=== PATIENT | male | born 1940 | race Caucasian/White ===

== ENCOUNTER 2021-11-28 13:33 | Outpatient (CLI) | payer MEDICARE ==
[2021-11-28 14:30] LABS: Hemoglobin 13.8 g/dL (13.5-17.5); Mean Corpuscular HGB CONC 31.8 g/dL (32.0-36.0); Mean Corpuscular Hemoglobin 30.9 pg (27.0-33.0); Mean Corpuscular Volume 97.1 fl (81.2-95.1); Mean Platelet Volume 10.1 fl (7.4-10.4); Platelet Count 195 10x3/uL (150-450); RBC Distribution Width 13.8 % (11.5-14.5); Red Blood Cell (RBC) Count 4.47 10x6/uL (4.32-5.72); White Blood Cell (WBC) Count 14.3 10x3/uL (3.5-10.5)
[2021-11-28 14:52] LABS: Anion Gap 15 mmol/L (10-20); BUN (Urea Nitrogen) 26 mg/dL (8.4-25.7); Calc. Creatinine Clearance 0 mL/min (70-130); Calcium 9.2 mg/dL (7.8-10.44); Carbon Dioxide 25 mmol/L (23-31); Chloride 105 mmol/L (98-107); Estimated GFR 52; Glucose 107 mg/dL (83-110); Potassium 4.6 mmol/L (3.5-5.1); Sodium 140 mmol/L (136-145)
== END 2021-11-28 13:34 | disposition home or self-care (01) ==
LOC: LABBT 13:33
PROVIDERS: ATTEND Internal Medicine Cardiovascular Disease
DX: Z01.812 Encounter for preprocedural laboratory examination (principal); I48.0 Paroxysmal atrial fibrillation; I48.4 Atypical atrial flutter; Z20.822 Contact with and (suspected) exposure to COVID-19
CPT/HCPCS: 80048; 85027; 87811

== ENCOUNTER 2021-12-03 07:31 | Observation (INO) | payer MEDICARE ==
[2021-11-28 11:04] VITALS: BMI 27.3
[2021-12-03] MEDS ORDERED: Heparin 10,000 UNITS/ 10 ML VIAL ONE (09:38)
[2021-12-03] MEDS ORDERED: Lidocaine 1% (PF) 30 ML VIAL ONE (09:38)
[2021-12-03] MEDS ORDERED: Protamine Sulfate 50 MG/5 ML VIAL ONE (09:38)
[2021-12-03] MEDS ORDERED: cloNIDine 0.1 MG TAB PO PRN (10:12)
[2021-12-03] MEDS ORDERED: HYDROcodone/Acetaminophen 5/325 mg Tablet PO PRN ×2 (10:15)
[2021-12-03] MEDS ORDERED: Fentanyl 100 MCG/2 ML VIAL ONE (10:15)
[2021-12-03] MEDS ORDERED: SUGAMMADEX SODIUM 200 MG/2 ML VIAL ONE (10:15)
[2021-12-03] MEDS ORDERED: Lorazepam 1 MG TAB PO PRN (10:16)
[2021-12-03] MEDS ORDERED: Ondansetron PF 4 MG/2 ML Vial ONE (10:27)
[2021-12-03] MEDS ORDERED: Lidocaine 1% PF 5 ML VIAL ONE (10:27)
[2021-12-03] MEDS ORDERED: PROPOFOL 200 MG/20 ML VIAL ONE (10:27)
[2021-12-03] MEDS ORDERED: Rocuronium Bromide 10 MG/ML (10ML VIAL) ONE (10:27)
[2021-12-03] MEDS ORDERED: ePHEDrine 50 MG/ML VIAL ONE (10:27)
[2021-12-03] MEDS ORDERED: Dexamethasone 20 MG/5 ML VIAL ONE (10:27)
[2021-12-03 10:35] LABS: INR-International Normal Ratio 1.1; Prothrombin Time 13.8 sec (12.0-14.7)
[2021-12-03] MEDS ORDERED: Phenylephrine 10 MG/ML VIAL ONE (11:15)
[2021-12-03] MEDS ORDERED: Heparin 25,000 units/D5W 500 ML ONE (11:40)
[2021-12-03] MEDS ORDERED: Ondansetron HCl/PF 4 MG/2 ML Vial IVP PRN (14:37)
[2021-12-03] MEDS ORDERED: Promethazine HCl 25 MG/ML VIAL IVPB PRN (14:37)
[2021-12-03] MEDS ORDERED: Atenolol 25 MG TAB PO SCH (21:00)
[2021-12-03] MEDS ORDERED: Atorvastatin Calcium 10 MG TAB PO SCH (21:00)
[2021-12-03] MEDS: Acetaminophen 325 MG TAB PO PRN (21:44)
[2021-12-03] MEDS: Vit A,C & E/Lutein/Minerals Tablet PO SCH (21:45)
[2021-12-03] MEDS: Apixaban 5 MG TAB PO SCH (21:46)
[2021-12-03] MEDS: cloNIDine 0.1 MG TAB PO SCH ×2 (21:46→21:51)
[2021-12-04 08:12] VITALS: BP 169/82; TEMP 98.1
[2021-12-04] MEDS ORDERED: Multivitamin W/ Minerals 1 TAB PO SCH (09:00)
[2021-12-04] MEDS ORDERED: Hydrochlorothiazide 25 MG TAB PO SCH (09:00)
[2021-12-04] MEDS ORDERED: Magnesium Oxide 400 MG TAB PO SCH (09:00)
[2021-12-04] MEDS ORDERED: Cholecalciferol (Vitamin D3) 400 UNITS TAB PO SCH (09:00)
[2021-12-04] MEDS ORDERED: Zinc Sulfate 220 MG CAP PO SCH (09:00)
[2021-12-04] MEDS ORDERED: TURMERIC 400 MG PO SCH (09:00)
[2021-12-04] MEDS ORDERED: Valsartan 80 MG TAB PO SCH (09:00)
[2021-12-04] MEDS ORDERED: Aspirin 81 mg Enteric Coated Tablet PO SCH (09:00)
[2021-12-04] MEDS ORDERED: Ascorbic Acid 500 mg Chewable Tablet PO SCH (09:00)
[2021-12-04] MEDS: Vit A,C & E/Lutein/Minerals Tablet PO SCH (09:21)
[2021-12-04] MEDS: Apixaban 5 MG TAB PO SCH (09:22)
[2021-12-04] MEDS: Acetaminophen 325 MG TAB PO PRN (09:22)
== END 2021-12-04 10:30 | disposition home or self-care (01) ==
LOC: CCL 07:31 → 2NO 09:55
PROVIDERS: ADMIT Internal Medicine Cardiovascular Disease; ATTEND Internal Medicine Cardiovascular Disease
PROC: B246ZZ4 Ultrasonography of Right and Left Heart, Transesophageal (ICD-10-PCS; principal; 2021-12-03)
PROC: 02583ZZ Destruction of Conduction Mechanism, Percutaneous Approach (ICD-10-PCS; 2021-12-03)
PROC: 02K83ZZ Map Conduction Mechanism, Percutaneous Approach (ICD-10-PCS; 2021-12-03)
DX: I48.0 Paroxysmal atrial fibrillation (principal); I48.3 Typical atrial flutter; I34.0 Nonrheumatic mitral (valve) insufficiency; I11.9 Hypertensive heart disease without heart failure; E78.5 Hyperlipidemia, unspecified; G47.30 Sleep apnea, unspecified; G25.81 Restless legs syndrome; Z85.6 Personal history of leukemia; Z79.01 Long term (current) use of anticoagulants; Z79.82 Long term (current) use of aspirin; Z79.899 Other long term (current) drug therapy
CPT/HCPCS: 85347 ×2; 85610; 85730; 93005; 93312; 93613; 93655; 93656; 93657; 93662; C1730; C1731; C1732; C1759; C1894; C2630; J1100; J1644; J2001; J2370; J2405; J2704; J2720; J3010; J3490